=== PATIENT | male | born 1945 | race Caucasian/White ===

== ENCOUNTER 2016-09-07 09:54 | Emergency (ER) | payer MEDICARE, OTHER ==
[~2016-09-07] VITALS: Ht 177.8 cm; Wt 81.8 kg
[2016-09-07] MEDS ORDERED: PERFOROMIS20 MCG/2 M IH (09:58)
[2016-09-07] MEDS ORDERED: PULMICORT180 MCG/Ac IH (09:58)
[2016-09-07 11:58] VITALS: BP 131/64
== END 2016-09-07 11:59 | disposition home or self-care (01) ==
LOC: ED 09:54
DX: R20.0 Anesthesia of skin (principal); R93.7 Abnormal findings on diagnostic imaging of other parts of musculoskeletal system

== ENCOUNTER → 2016-09-12 | Outpatient (CLI) | payer MEDICARE, OTHER ==
[2016-09-07 11:58] VITALS: BP 131/64
[~2016-09-12] MED LIST: PERFOROMIS20 MCG/2 M IH; PULMICORT180 MCG/Ac IH
== END ==
LOC: RAD 08:50
DX: R55 Syncope and collapse (principal); R20.0 Anesthesia of skin; I25.10 Atherosclerotic heart disease of native coronary artery without angina pectoris

== ENCOUNTER → 2017-07-24 | Outpatient (CLI) | payer MEDICARE, OTHER | LOC: RAD 11:56 | DX: R51 Headache (principal) ==

== ENCOUNTER 2017-08-28 11:00 | Outpatient (RCR) | payer MEDICARE, OTHER | END 2017-08-28 11:30 | disposition home or self-care (01) | LOC: PT 11:00 | DX: R51 Headache (principal); G20 Parkinson's disease ==